=== PATIENT | male | born 1990 | race Caucasian/White ===

== ENCOUNTER 2018-02-12 16:34 | Emergency (ER) | payer OTHER ==
[~2018-02-12] VITALS: Ht 177.8 cm; Wt 134.1 kg
[~2018-02-12 16:34] MED LIST: NO MEDS
[2018-02-12 17:16] LABS: HEMATOCRIT 45.2 % (38.0-50.0); HEMOGLOBIN 15.2 G/DL (12.5-16.6); MCH 28.5 PG (29.0-34.0); MCHC 33.6 G/DL (30.0-36.0); MCV 84.6 FL (86-99); PLATELET COUNT 296 K/uL (156-360); RBC DIS.WIDTH-CV 12.2 % (11.8-14.6); RBC DIS.WIDTH-SD 37.2 % (39-53); RED BLOOD COUNT 5.34 M/uL (4.00-5.50); WHITE BLOOD COUNT 9.2 K/uL (4.1-10.2)
[2018-02-12 17:26] LABS: ALBUMIN 4.3 g/dL (3.2-4.8); CHLORIDE 103 mEq/L (99-109); POTASSIUM 4.1 mEq/L (3.7-5.4); SODIUM 139 mEq/L (136-147)
[2018-02-12 17:29] LABS: GLUCOSE 102 mg/dL (70-99)
[2018-02-12 17:31] LABS: TOTAL BILIRUBIN 0.8 mg/dL (0.0-1.0)
[2018-02-12 17:32] LABS: ALKALINE PHOSPHATASE 84 IU/L (3-129); CREATININE 0.9 mg/dL (0.6-1.3); GFR ESTIMATE (CALCULATED) > 59 mL/min/ (58.99-99999)
[2018-02-12 17:33] LABS: UREA NITROGEN (BUN) 15 mg/dL (9-23)
[2018-02-12 17:34] LABS: AST (GOT) 28 IU/L (2-34)
[2018-02-12 17:35] LABS: ALT (GPT) 40 IU/L (3-49)
[2018-02-12 17:40] LABS: APPEARANCE CLEAR ((CLEAR)); BILIRUBIN NEGATIVE; BLOOD SMALL; COLOR YELLOW ((YELLOW)); GLUCOSE (STRIP) NEGATIVE; KETONES NEGATIVE; LEUKOCYTES NEGATIVE; NITRITE NEGATIVE; PROTEIN (STRIP) 30; SPECIFIC GRAVITY 1.026 (1.000-1.030)
[2018-02-12 17:52] LABS: BACTERIA NONE SEEN /HPF; EPITHELIAL CELLS RARE /HPF; MUCUS 2+ /LPF; RED BLOOD CELLS 0-5 /HPF (0-5); UCUL ADDED? NO; WHITE BLOOD CELLS 0-5 /HPF (0-5)
[2018-02-12 17:55] LABS: LIPASE 5 U/L (1.0-51.0)
[2018-02-12] MEDS ORDERED: ULTRAM50 MG PO (19:51)
[2018-02-12] MEDS ORDERED: CIPRO500 MG PO (19:51)
[2018-02-12 20:21] VITALS: BP 112/70
== END 2018-02-12 20:23 | disposition home or self-care (01) ==
LOC: EME 16:34
DX: A09 Infectious gastroenteritis and colitis, unspecified (principal)
CPT/HCPCS: 74176; 80053; 81003; 83690; 85027; 99281; 99284; J1885